=== PATIENT | female | born 1995 | race Caucasian/White ===

== ENCOUNTER 2017-09-01 16:34 | Emergency (ER) | payer OTHER ==
[2017-09-01 16:44] VITALS: BP 111/84; PULSE 122; RESP 17; TEMP 98.2; O2SAT 98
--- NOTE | 2017-09-01 17:17 | EDPHY ---
HPI/HX/ROS/PE/MDM Narrative: CHIEF COMPLAINT: "I have a lump on my right rib" HPI: The patient is a 21 y/o female complaining of a nonpainful lump on her right rib. She just noticed the lump today, but thinks it may have been there for a while. She cannot identify preceding trauma. She has a history of multiple broken bones and Rodriguez's Palsy. She's had an intermittent cough for the last few weeks and sometimes feels short of breath when anxious, but it's unclear if these are associated with this lump. She denies other symptoms and is otherwise healthy. REVIEW OF SYSTEMS: Aside from elements discussed in the HPI, a comprehensive 10-point review of systems was reviewed and is negative. PMH: Rodriguez's Palsy; "I've broken 9 bones" - wrist x5, elbow, foot, nose SOCIAL HISTORY: PHYSICAL EXAM: General:Patient is alert, in no acute distress. ENT:Eyes are normal to inspection. ENT inspection normal. Neck: Normal inspection. Full range of motion. Respiratory:No respiratory distress. Breath sounds normal bilaterally. Cardiovascular: Regular rate and rhythm. Strong peripheral pulses. Normal cap refill. Chest: Suggestion of slightly more protuberant costal margin on the right. No erythema or trauma. Abdomen:The abdomen is nontender to palpation. There are no peritoneal signs. Back: Normal to inspection. No tenderness to palpation. Skin: Normal color. No rash. Warm and dry. Extremities: Normal appearance. Full range of motion. Neuro: Oriented x3. Normal motor function. Normal sensory function. ED Course: This is a healthy 21 y/o female with a history of multiple prior orthopedic fractures who presents with unknown onset of what she considers a lump on her right anterior rib cage. There is the slight suggestion of a more protuberant right costal margin, but no definitive lump or tenderness on exam. Exam is otherwise unremarkable. Plan for rib x-rays. MDM: This is a young healthy female who presents with painless diffuse bump on right lower costal margin. XR negative for bony abnormality and radiologist suggests lipoma. I offered to perform US here in the ED to further characterize, but patient declines. She will follow-up as outpatient. - Data Points Imaging Results: Imaging Impressions Ribs w/Chest X-Ray 09/01/17 17:15 Impression: 1. Negative for acute abnormality. 2. Possible lipoma corresponding to the palpable area.. General Time Seen by Provider: 09/01/17 17:03 Initial Vital Signs: Initial Vital Signs Temperature (C) 36.8 C 09/01/17 16:41 Heart Rate 122 H 09/01/17 16:41 Respiratory Rate 17 09/01/17 16:41 Blood Pressure 111/84 H 09/01/17 16:41 O2 Sat (%) 98 09/01/17 16:41 O2 Delivery Mode Room Air Allergies/Adverse Reactions: No Known Allergies Allergy (Unverified 09/01/17 16:39) Home Medications: Medication Instructions Recorded Adderall Xr 10 mg Capsule 09/01/17 Nexplanon 09/01/17 Departure - Departure Disposition: Home, Routine, Self-Care Clinical Impression: Lipoma of chest wall Condition: Good Instructions: Lipoma (ED) Additional Instructions: Follow-up with your PCP within 1-2 weeks. You will need to get an ultrasound of the area on your chest to further characterize it, within one month. Return to the ED for increase in size of bump, pain, shortness of breath or other concerns. Referrals: NONE *PRIMARY CARE P,. [Primary Care Provider] - As per Instructions Report Scribed for: Naeem Miller Report Scribed by: Prema Reynolds Date of Report: 09/01/17 Time of Report: 17:17 Physician Review and Approval Statement: Portions of this note were transcribed by an ED scribe. I personally performed the history, physical exam, and medical decision making; and confirm the accuracy of the information in the transcribed note.
== END 2017-09-01 18:55 | disposition home or self-care (01) ==
DX: D17.9 Benign lipomatous neoplasm, unspecified (principal)